=== PATIENT | male | born 1940 | race Caucasian/White ===

== ENCOUNTER 2018-12-20 23:05 | Inpatient (IN) | payer OTHER ==
[~2018-12-20] VITALS: Ht 177.8 cm; Wt 72.6 kg
[~2018-12-20 23:05] MED LIST: BENADRYL25 MG PO; HYDROCHLOROTHIA25 M1 PO; HYDROGEN PEROXIDE; LANTUS100 UNIT/M SUBQ; LISINOPRIL-HCT1 EACH PO; METFORMIN HCL500 MG PO; MULTI VITAMIN; PREDNISONE 20 M20 M1 PO; UNKNOWN HTN MED; ZANTAC 7575 MG PO; [UNRECOGNIZED DRUG - OTHER]; [UNRECOGNIZED DRUG - OTHER]; [UNRECOGNIZED DRUG - OTHER]
[2018-12-20 23:10] VITALS: BP 158/68
[2018-12-20 23:29] LABS: BE -3.4 mmol/L (-2 to +3)
[2018-12-20 23:38] LABS: PCO2 57.1 mmHg (35.0-45.0); pH 7.258 (7.340-7.450)
[2018-12-20 23:39] LABS: PO2 37.7 mmHg (75.0-100.0)
[2018-12-20 23:44] LABS: POC ANION GAP 19 mmol/L (10-20); POC BUN 20 mg/dL (8-26); POC CA IONIZED 4.6 mg/dL (4.5-5.3); POC CHLORIDE 86 mmol/L (98-109); POC CREATININE 1.2 mg/dL (0.6-1.3); POC GLUCOSE > 700 mg/dL (70-105); POC HEMOGLOBIN 17.7 g/dL (12.0-17.0); POC POTASSIUM 4.2 mmol/L (3.5-4.9); POC SODIUM 128 mmol/L (138-146); POC TCO2 27 mmol/L (24-29)
[2018-12-20 23:46] LABS: URINE BILIRUBIN NEGATIVE (Negative); URINE BLOOD 3+ (Negative); URINE CLARITY CLEAR; URINE COLOR STRAW; URINE GLUCOSE-RANDOM 3+ (Negative); URINE KETONES NEGATIVE (Negative); URINE LEUKOCYTES-REFLEX NEGATIVE (Negative); URINE NITRITE-REFLEX NEGATIVE (Negative); URINE PROTEIN NEGATIVE (Negative); URINE SPECIFIC GRAVITY <= 1.005 (1.005-1.030); URINE UROBILINOGEN 0.2 E.U./dl (0.2-1.0)
[2018-12-20 23:52] LABS: ABSOLUTE EOSINOPHILS 0.2 thou/uL (0.0-0.7); ABSOLUTE LYMPHOCYTES 2.6 thou/uL (0.8-5.3); ABSOLUTE NEUTROPHILS 5.4 thou/uL (1.6-8.1); BASOPHILS 0.4 %; EOSINOPHILS 2.6 %; HEMATOCRIT 49.5 % (42.0-52.0); HEMOGLOBIN 16.3 gm/dL (14.0-18.0); MCH 29.8 pg (26.0-34.0); MCV 90.4 fL (80.0-100.0); MONOCYTES 10.4 %; MPV 8.5 fl. (7.2-11.1); NUCLEATED RBCS 0 /100WBC; PLATELET COUNT* 333 thou/uL (150-400); POLYS 58.6 %; RBC 5.47 mil/uL (4.50-6.00); RDW-CV 13.5 % (10.5-14.5); WBC 9.2 thou/uL (4.0-11.0)
[2018-12-20 23:54] LABS: AMP/METHAMP Negative (Negative); BARBITURATES Negative (Negative); BENZODIAZEPINES Negative (Negative); COCAINE Negative (Negative); METHADONE Negative (Negative); OPIATES Negative (Negative); PCP Negative (Negative); THC Negative (Negative)
[2018-12-21] VITALS (36 sets, daily range): BP systolic 84–185; BP diastolic 36–75
[2018-12-21 00:03] LABS: INR 0.9; PROTIME 9.5 Seconds (9.20-11.50)
[2018-12-21 00:10] LABS: ANION GAP 7 mmol/L (7-16); BUN 19 mg/dL (7-18); CALCIUM 9.2 mg/dL (8.5-10.1); CHLORIDE 89 mmol/L (98-107); CO2 30 mmol/L (21-32); CREATININE 1.8 mg/dL (0.6-1.3); POTASSIUM 4.7 mmol/L (3.5-5.1); SODIUM 126 mmol/L (136-145); TROPONIN-I LEVEL <0.06 ng/mL (<0.06)
[2018-12-21 00:11] LABS: ALBUMIN 3.3 g/dL (3.4-5.0); ALKALINE PHOSPHATASE 99 U/L (46-116); LIPASE 430 U/L (73-393); NT-PRO BRAIN NAT PEPTIDE 178 pg/mL (<300); SGOT 25 U/L (15-37); SGPT 18 U/L (30-65); TOTAL BILIRUBIN 0.3 mg/dL (<0.1-1.0); TOTAL PROTEIN 7.4 g/dL (6.4-8.2)
[2018-12-21 00:19] LABS: CALCIUM 9.2 mg/dL (8.5-10.1); CREATININE 1.8 mg/dL (0.6-1.3); POTASSIUM 4.7 mmol/L (3.5-5.1)
[2018-12-21 00:21] LABS: GLUCOSE 822 mg/dL (70-99)
[2018-12-21 00:27] LABS: CASTS None Seen /LPF (None Seen); SQUAMOUS 0-3 Few /LPF (0-3)
[2018-12-21 00:28] LABS: URINE RBC 3-10 Few /HPF (0-2); URINE WBC-REFLEX 0-5 Rare /HPF (0-5)
[2018-12-21 00:29] LABS: BACTERIA-REFLEX 1-9 Few /HPF (None Seen); CRYSTALS None Seen /LPF (None Seen); TRANSITIONAL EPITHEL CELL 4-10 Moderate /LPF (None Seen)
[2018-12-21 00:48] LABS: BE -0.1 mmol/L (-2 to +3)
[2018-12-21 00:50] LABS: PCO2 69.6 mmHg (35.0-45.0); pH 7.243 (7.340-7.450)
[2018-12-21 00:51] LABS: PO2 211.9 mmHg (75.0-100.0)
[2018-12-21 05:52] LABS: BE 1.7 mmol/L (-2 to +3); PCO2 49.5 mmHg (35.0-45.0); pH 7.368 (7.340-7.450)
[2018-12-21 08:25] LABS: CALCIUM 8.3 mg/dL (8.5-10.1); CREATININE 0.9 mg/dL (0.6-1.3); MAGNESIUM 1.7 mg/dL (1.8-2.4); PHOSPHORUS* 2.9 mg/dL (2.5-4.9); TROPONIN-I LEVEL 0.19 ng/mL (<0.06)
[2018-12-21 08:27] LABS: POTASSIUM 3.5 mmol/L (3.5-5.1)
[2018-12-21 10:46] LABS: CHOLESTEROL 118 mg/dL (<200); HDL CHOLESTEROL 31 mg/dL (>40); LDL CHOLESTEROL 68 mg/dL (<100); TC:HDL 3.8 Ratio (Not establshd); TRIGLYCERIDE 97 mg/dL (<150); VLDL 19 mg/dL (<40)
[2018-12-21 10:47] LABS: SERUM ASSESSMENT Clear
[2018-12-21 12:26] LABS: MAGNESIUM 2.2 mg/dL (1.8-2.4); POTASSIUM 4.1 mmol/L (3.5-5.1)
[2018-12-21 15:38] LABS: BE -0.2 mmol/L (-2 to +3); PCO2 44.6 mmHg (35.0-45.0); pH 7.372 (7.340-7.450)
[2018-12-21 15:41] LABS: PO2 55.8 mmHg (75.0-100.0)
[2018-12-22] VITALS (90 sets, daily range): BP systolic 71–189; BP diastolic 38–83
[2018-12-22 02:05] LABS: GLYCOHEMOGLOBIN (HGB A1C) 15.6 % (4.8-5.6)
[2018-12-22 04:39] LABS: HEMATOCRIT 39.5 % (42.0-52.0); MCH 28.9 pg (26.0-34.0); MCHC 33.1 g/dL (28.0-37.0); MCV 87.5 fL (80.0-100.0); MPV 8.2 fl. (7.2-11.1); RBC 4.52 mil/uL (4.50-6.00); RDW-CV 13.6 % (10.5-14.5); WBC 12.4 thou/uL (4.0-11.0)
[2018-12-22 04:53] LABS: HEMOGLOBIN 13.1 gm/dL (14.0-18.0)
[2018-12-22 04:55] LABS: ALBUMIN 2.3 g/dL (3.4-5.0); CALCIUM 8.1 mg/dL (8.5-10.1); CREATININE 1.1 mg/dL (0.6-1.3); MAGNESIUM 1.8 mg/dL (1.8-2.4); POTASSIUM 3.9 mmol/L (3.5-5.1); TOTAL BILIRUBIN 0.7 mg/dL (<0.1-1.0); TOTAL PROTEIN 5.4 g/dL (6.4-8.2)
[2018-12-22 06:23] LABS: BE -0.1 mmol/L (-2 to +3); PCO2 46.6 mmHg (35.0-45.0); PO2 95.7 mmHg (75.0-100.0); pH 7.361 (7.340-7.450)
--- NOTE | 2018-12-22 11:07 | EKG ---
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1940 Requested By: Amelia Villanueva Order Number: [id number] MD: Hemant Valencia Measurements Intervals [place] Rate: 101 P: 43 HI: 200 QRS: 59 QRSD: 89 T: 258 QT: 297 QTc: 385 Interpretive Statements Sinus tachycardia Ventricular bigeminy Repol abnrm suggests ischemia, diffuse leads Compared to ECG 11/25/2015 13:00:35 Ventricular premature complex(es) now present Possible ischemia now present Electronically Signed On 12-22-2018 11:06:54 CDT by Hemant Valencia [email or web address] <ELECTRONICALLY SIGNED> By: Hemant Valencia MD, FAC 12/22/18 1106 2319 2319 Hemant Valencia MD, [facility] /EPI
--- NOTE | 2018-12-22 11:09 | EKG ---
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1940 Requested By: Ravi Velazco Order Number: [id number] Reading MD: Hemant Valenica Measurements Intervals [place] Rate: 70 P: 73 SD: 195 QRS: 66 QRSD: 81 T: 238 QT: 357 QTc: 386 Interpretive Statements Sinus rhythm Abnormal T, consider ischemia, diffuse leads Compared to ECG 11/25/2015 13:00:35 Possible ischemia now present T-wave abnormality still present Electronically Signed On 12-22-2018 11:09:15 CDT by Hemant Valencia [email or web address] <ELECTRONICALLY SIGNED> By: Hemant Valencia MD, [facility] 12/22/18 2446 0748 0748 Hemant Valencia MD, [facility] /EPI
--- NOTE | 2018-12-22 11:20 | EKG ---
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[facility] : 1940 Requested By: Ravi Velazco Order Number: [id number] Jessica MD: Hemant Valencia Measurements Intervals [place] Rate: 54 P: 49 MN: 205 QRS: 59 QRSD: 83 T: 207 QT: 505 QTc: 479 Interpretive Statements Sinus rhythm Abnrm T, consider ischemia, anterolateral leads Compared to ECG 11/25/2015 13:00:35 Possible ischemia persists Electronically Signed On 12-22-2018 11:17:44 CDT by Hemant Valencia [email or web address] <ELECTRONICALLY SIGNED> By: Hemant Valencia MD, [facility] 12/22/18 1117 0756 0756 Hemant Valencia MD, FACC /EPI
--- NOTE | 2018-12-22 13:09 | 2DMMODE ---
[place] [address] 2 D/M-MODE ECHOCARDIOGRAM Name: EVE,EDJOSSY Patel Room: [address] ADM IN [facility]#: [id number] Admission: 12/21/18 Attend Phys: Ren Daly MD Discharge: Date of : 38 Date of Service: 12/22/18 1308 Report #: [id number] THIS REPORT FOR: //name// APPROVED REPORT Study performed: 12/22/2018 09:57:06 EXAM: Comprehensive 2D, Doppler, and color-flow Echocardiogram Patient Location: In-Patient Room #: [facility] Status: routine BSA: 1.98 HR: 65 bpm BP: 172/80 mmHg Rhythm: NSR Other Information Study Quality: Good Indications DKA, Hypoxic 2D Dimensions IVSd: 11.00 (7-11mm) LVOT Diam: 20.41 (18-24mm) LVDd: 48.11 mm PWd: 10.22 (7-11mm) Ascending Ao: 32.34 (22-36mm) LVDs: 31.29 (25-40mm) Aortic Root: 30.91 mm Volumes Left Atrial Volume (Systole) LA ESV Index: 20.30 mL/m2 Aortic Valve AoV Peak Dillon.: 0.99 m/s AO Peak Gr.: 3.92 mmHg LVOT Max P.40 mmHg AO Mean Gr.: 2.14 mmHg LVOT Mean P.39 mmHg LVOT Max V: 0.92 m/s AO V2 VTI: 18.15 cm LVOT Mean V: 0.53 m/s DELMIS (VTI): 3.06 cm2 LVOT V1 VTI: 16.96 cm Mitral Valve E/A Ratio: 1.02 MV Decel. Time: 252.78 ms MV E Max Dillon.: 0.96 m/[place] [address] 2 D/M-MODE ECHOCARDIOGRAM Name: EVESHENA NEWMAN Amanda Room: [address] IN .R.#: [id number] Admission: 12/21/18 Attend Phys: Ren Daly MD Discharge: Date of : 38 Date of Service: 12/22/18 1308 Report #: [id number] MV PHT: 73.31 ms MVA (PHT): 3.00 cm2 TDI E/Lateral E': 8.00 E/Medial E': 8.73 Medial E' Dillon.: 0.11 m/s Lateral E' Dillon.: 0.12 m/s Pulmonary Valve PV Peak Dillon.: 0.86 m/s PV Peak Gr.: 2.93 mmHg Left Ventricle The left ventricle is normal size. There is normal LV segmental wall motion. There is normal left ventricular wall thickness. Left ventricular systolic function is normal. The left ventricular ejection fraction is within the normal range. LVEF is 55-60%. The left ventricular diastolic function is normal. Right Ventricle The right ventricle is normal size. The right ventricular systolic function is normal. Atria The left atrium size is normal. The right atrium size is normal. Aortic Valve Mild aortic valve sclerosis. No aortic regurgitation is present. There is no aortic valvular stenosis. Mitral Valve The mitral valve is normal in structure. There is no mitral valve regurgitation noted. No evidence of mitral valve stenosis. Tricuspid Valve The tricuspid valve is normal in structure. There is no tricuspid valve regurgitation noted. Pulmonic Valve The pulmonary valve is normal in structure. There is no pulmonic valvular regurgitation. Great Vessels The aortic root is normal in size. IVC is normal in size and collapses >50% [place] [address] 2 D/M-MODE ECHOCARDIOGRAM Name: SHENA PRADO Room: [address] IN [facility]#: [id number] Admission: 12/21/18 Attend Phys: Ren Daly MD Discharge: Date of : 38 Date of Service: 12/22/18 1308 Report #: [id number] Pericardium There is no pericardial effusion. <Conclusion> The left ventricle is normal size. There is normal left ventricular wall thickness. Left ventricular systolic function is normal. The left ventricular ejection fraction is within the normal range. LVEF is 55-60%. The left ventricular diastolic function is normal. The right ventricle is normal size. The left atrium size is normal. Mild aortic valve sclerosis. No aortic regurgitation is present. There is no aortic valvular stenosis. The mitral valve is normal in structure. The tricuspid valve is normal in structure. IVC is normal in size and collapses >50% with inspiration. There is no pericardial effusion. There is normal LV segmental wall motion. <ELECTRONICALLY SIGNED> By: Hemant Valencia MD, FACC 12/22/18 1308 1308 1308 Hemant Valencia MD, FACC /INF
--- NOTE | 2018-12-22 16:27 | CON ---
[address] [address] CONSULTATION Name: EVESHARRIJOSSY Patel Room: [address] IN M.R.#: [id number] Admission: 12/21/18 Attend Phys: Ren Daly MD Discharge: Date of : 38 Report #: [id number] THIS REPORT FOR: //name// CC: GABE physician/PCP Ren Daly CARDIOLOGY CONSULTATION HISTORY OF PRESENT ILLNESS: I was asked by Dr. Daly to see this 78-year-old white male in Cardiology consultation for evaluation and treatment of chest pain. Additionally, this man does have an abnormal EKG and a minimally elevated troponin at 0.07. This man is intubated, sedated and on the ventilator and unable to give a history. According to the ER notes, he was found by his son on the floor after having fallen; he had had some falls for a couple of weeks apparently. He, apparently, passed out and hit his head. There is an abrasion noted on his forehead. This man does have insulin-dependent diabetes mellitus and hypertension. He was confused and combative and agitated and was subsequently brought to the hospital. I am not sure whether he was intubated in the field or at the hospital. Apparently, he had some hypoxemia; at least there is one report of that, although I do not find a data to support it. He has a history of a carotid stenosis. He has had an endarterectomy, I believe, on the right and is said to have had an 80% lesion on the left a couple of years ago, about which he has refused to do anything. He is a 8-jseh-n-day smoker and does not wish to quit smoking, according from a previous note from [address] Morales's in the office. He is noncompliant. He is found to have hyperosmotic hyperglycemia. His blood sugar was 800. He is felt to have a metabolic encephalopathy. He is felt to be possibly septic. He does have renal hematoma on a CT. I have been unable to find that result, but I was told that he has it and one investigative reporter had said that he had bilateral renal hematomas. He does have red blood cells in his urine, but not significant white cells. He does have insulin-dependent diabetes. He said to not take his medications regularly. PAST MEDICAL HISTORY: As described above. He does have interstitial infiltrates that at least one of the physicians reported were chronic; however, pneumonia has not been excluded here. ALLERGIES: HE IS ALLERGIC TO [place] INHIBITORS AND HE GETS ANGIOEDEMA WITH IT. HOME MEDICATIONS: Include Benadryl p.r.n., hydrochlorothiazide 25 mg daily, Lantus insulin in an unknown dose and metformin 1000 mg b.i.d. He cannot give a history and there is no family here for history either. SOCIAL HISTORY: Likewise unobtainable, though he was noted in the past to smoke 2 packs a day and refuses to quit smoking. FAMILY HISTORY: [place] [address] CONSULTATION Name: SHENA PRADO Room: [address] IN [facility]#: [id number] Admission: 12/21/18 Attend Phys: Ren Daly MD Discharge: Date of : 39 Report #: [id number] PHYSICAL EXAMINATION: GENERAL: He presents as well-developed, well-nourished white male, in no acute distress. He is unresponsive and on the ventilator. VITAL SIGNS: His pulse was 63 and regular, blood pressure was 146/70, respirations were 16 and regular and he was afebrile. Most recent temperature was 95.9 axillary. HEENT: His head was atraumatic. Eyes clear. NECK: Supple. There was no jugular venous distention or hepatojugular reflux. Thyroid was not enlarged. There was no adenopathy. SKIN: Warm and dry. Mucous members were moist. LUNGS: Clear to auscultation and percussion, although his breath sounds were decreased bilaterally. HEART: Examination of the heart revealed distant first and second heart sounds. There were no murmurs, rubs, thrills, heaves or gallops. PMI was not displaced. Rhythm was regular, rate was approximately 63. ABDOMEN: Soft, flat and nontender. There were no palpable masses. No organomegaly. EXTREMITIES: Examination of the extremities revealed no cyanosis, clubbing or edema. NEUROLOGIC: The patient did not mentate normally, talk normally and he did not move all extremities. He was intubated and sedated. I believe he is on fentanyl now. Note that this man was reported by EMS to say that he had chest pain after he had fallen. He cannot report chest pain now; it just does not seem to be tender. He did not respond to pressure on his chest. LABORATORY DATA: His initial EKG showed normal sinus rhythm with frequent VPCs and some bigeminy. There were nonspecific T-wave abnormalities that were somewhat diffuse. The overall heart rate was 101, so technically, it is sinus tachycardia. Subsequent EKG today showed normal sinus rhythm, heart rate was 70 and there were T-wave abnormalities that were diffuse, involving the inferior and anterolateral leads. Ischemia cannot be excluded. His initial troponin was normal and less than 0.06. A subsequent troponin was minimally elevated at 0.07; another one is pending. His NT-proBNP was 178. Creatinine was 1.8, sodium was 126, potassium is 4.7, chloride was 89 and bicarbonate was 30. He had multiple CTs and x-rays. Positive findings are as described above. IMPRESSION: 1. Chest pain that is probably not cardiac, but could have been ischemic. 2. Abnormal EKG, consistent with, but not diagnostic of ischemia. 3. Minimal elevation of troponin that is fairly nonspecific in this context. 4. Carotid stenosis. 5. Insulin-dependent diabetes mellitus. 6. Essential hypertension. 7. [place] [address] CONSULTATION Name: SHENA PRADO Room: [address] IN ..#: [id number] Admission: 12/21/18 Attend Phys: Ren Daly MD Discharge: Date of : 39 Report #: [id number] 8. Smoking. 9. Hyperosmotic hyperglycemic coma. 10. Metabolic encephalopathy. 11. Possible sepsis. 12. Renal hematoma. RECOMMENDATIONS: I will get further troponins and further EKGs, but I do not think cardiac intervention is necessary at this point. We can get an echo and carotid Dopplers. Ultimately, he probably needs a stress test or cardiac cath, but not today or in the near future; his metabolic problems need to be corrected first. Thank you very much for asking me to see the patient. If there are any questions, please feel free to contact me. <ELECTRONICALLY SIGNED> By: Rosendo Morales MD, FACC 12/22/18 1627 0916 [id number]. Horace Velazco MD, FAC /nt
[2018-12-23] VITALS (22 sets, daily range): BP systolic 93–196; BP diastolic 39–96
[2018-12-23 04:43] LABS: HEMOGLOBIN 13.4 gm/dL (14.0-18.0); MCH 29.4 pg (26.0-34.0); MCHC 33.4 g/dL (28.0-37.0); MCV 88.1 fL (80.0-100.0); RBC 4.54 mil/uL (4.50-6.00); RDW-CV 13.8 % (10.5-14.5); WBC 8.8 thou/uL (4.0-11.0)
[2018-12-23 05:08] LABS: ALBUMIN 2.2 g/dL (3.4-5.0); CALCIUM 8.2 mg/dL (8.5-10.1); CREATININE 1.1 mg/dL (0.6-1.3); MAGNESIUM 1.7 mg/dL (1.8-2.4); POTASSIUM 4.2 mmol/L (3.5-5.1); TOTAL BILIRUBIN 0.3 mg/dL (<0.1-1.0); TOTAL PROTEIN 5.5 g/dL (6.4-8.2)
[2018-12-23 11:23] LABS: BE -0.8 mmol/L (-2 to +3); pH 7.348 (7.340-7.450)
[2018-12-23 11:25] LABS: PO2 150.2 mmHg (75.0-100.0)
--- NOTE | 2018-12-23 16:31 | CON ---
[address] [address] CONSULTATION Name: SHENA PRADO Room: [address] IN M.R.#: [id number] Admission: 12/21/18 Attend Phys: Ren Daly MD Discharge: Date of : 38 Report #: [id number] THIS REPORT FOR: //name// CC: Eden Daly DATE OF SERVICE: 12/22/2018 REASON FOR EVALUATION: Acute respiratory failure requiring ventilator. HISTORY OF PRESENT ILLNESS: The patient is a 78-year-old gentleman with history of diabetes, on insulin, who presented with agitation, confused, altered mental status. Apparently, the patient was not able to protect his airway. He was confused, lethargic and started to have hypoxemia, was intubated for airway protection and we were consulted for further care. He was admitted, was found to have severe hyperglycemia associated lactic acidosis. Has altered mental status and was intubated, was treated with insulin and IV fluids and empiric antibiotics with hypotension and lactic acidosis. His Levophed at this time at 1. His troponin was slightly elevated, suspect demand ischemia with hypotension and hypoxemia. Currently, the patient is intubated. He is grimacing, withdrawing to pain. He is on sedation, however. PAST MEDICAL HISTORY: Angioedema, hyperlipidemia. ALLERGIES: B[place] INHIBITORS. SOCIAL HISTORY: Not able to obtain; however, from the records, has history of smoking 2 packs per day and continues to smoke. FAMILY HISTORY: Not obtainable. HOME MEDICATIONS: Reviewed include hydrochlorothiazide, Lantus insulin. REVIEW OF SYSTEMS: Unobtainable. Otherwise, as above. PHYSICAL EXAMINATION: GENERAL: The patient is sedated on propofol. VITAL SIGNS: His pulse is 57. He is afebrile. Maximum temperature was 37.1; however, when he first came in, temperature was 35.5. Blood pressure 125/57. He is on Levophed at 1 and oxygen saturation is 100%. NECK: Supple. EYES: Anicteric. CHEST: Equal symmetric breath sounds and normal. [place] [address] CONSULTATION Name: SHENA PRADO Amanda Room: [address] IN [facility].#: [id number] Admission: 12/21/18 Attend Phys: Ren Daly MD Discharge: Date of : 38 Report #: [id number] CARDIOVASCULAR: Regular rhythm. ABDOMEN: Soft, nontender, obese. EXTREMITIES: Trace edema. NEUROLOGIC AND PSYCHIATRY: Not able to evaluate; however, was agitated earlier. He is on propofol. LABORATORY AND OTHER DATA: White blood cell count 12.4, initially 9.2, hemoglobin 13.1, platelets were 260. Chemistry: His sodium 128, potassium normal. Carbon dioxide 28. Anion gap is normal at 8. His hemoglobin A1c is severely increased 15.6. Troponin 0.13. Albumin 2.3, lipase 430. Natriuretic peptide proBNP was normal at 178. Blood gas, pH 7.3; pCO2 46, borderline elevated; pO2 95. This was on 35%, tidal volume 600, and PEEP of 5. Chest x-ray, which was done today, which I have reviewed as well shows right lower lobe infiltrate, effusion versus atelectasis versus developing pneumonia, has mild pulmonary vascular congestion, revascularization. Otherwise clear. Suspect aspiration. ASSESSMENT AND PLAN: 1. Acute respiratory failure related to altered mental status. His altered mental status is likely related to hyperglycemia, noncompliance, dehydration. Cannot exclude sepsis. Agree with antibiotic treatment. Agree with IV fluid hydration. Has minimal pulmonary vascular congestion. Currently on antibiotics with vancomycin and Zosyn. 2. Hypotension. Differential diagnoses include dehydration, most likely hypovolemia with severe hyperglycemia, nonketotic coma. Agree with IV hydration. At this time, he has hyponatremia. We will bolus half liter with LR. Differential diagnosis includes sepsis, cardiogenic is less likely. Currently on antibiotics as above. 3. Acute respiratory failure. We will do spontaneous breathing trial, chest x-ray in the morning. Evaluate for weaning if mental status adequate. 4. Mildly elevated troponin, per Cardiology. Suspect demand ischemia. Critical care time taking care of the patient was 31 minutes. <ELECTRONICALLY SIGNED> By: Asher Chiang MD 12/23/18 1631 1308 [id number] Chiang MD /nt
[2018-12-24] VITALS (12 sets, daily range): BP systolic 117–227; BP diastolic 63–120
[2018-12-24 04:51] LABS: HEMATOCRIT 43.8 % (42.0-52.0); HEMOGLOBIN 14.6 gm/dL (14.0-18.0); MCH 29.2 pg (26.0-34.0); MCHC 33.2 g/dL (28.0-37.0); MCV 87.7 fL (80.0-100.0); MPV 8.5 fl. (7.2-11.1); RBC 4.99 mil/uL (4.50-6.00); RDW-CV 13.6 % (10.5-14.5); WBC 11.5 thou/uL (4.0-11.0)
[2018-12-24 05:05] LABS: ALBUMIN 2.7 g/dL (3.4-5.0); MAGNESIUM 1.7 mg/dL (1.8-2.4); POTASSIUM 3.9 mmol/L (3.5-5.1); TOTAL BILIRUBIN 0.7 mg/dL (<0.1-1.0); TOTAL PROTEIN 6.6 g/dL (6.4-8.2)
[2018-12-24 06:40] LABS: BE 4.9 mmol/L (-2 to +3); PCO2 34.3 mmHg (35.0-45.0)
--- NOTE | 2018-12-24 16:06 | EKG ---
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[facility] : 1940 Requested By: Gisella Loving Order Number: [id number] Jessica MD: Hemant Valencia Measurements Intervals [place] Rate: 92 P: 36 CT: 181 QRS: 56 QRSD: 86 T: -5 QT: 296 QTc: 367 Interpretive Statements Sinus rhythm with rare pvc's Borderline repolarization abnormality Compared to ECG 12/22/2018 07:56:00 Possible ischemia no longer present Electronically Signed On 12-24-2018 16:06:33 CDT by Hemant Valencia [email or web address] <ELECTRONICALLY SIGNED> By: Hemant Valencia MD, [facility] 12/24/18 1606 1520 1520 Hemant Valencia MD, [facility] /EPI
[2018-12-25 05:02] LABS: HEMATOCRIT 44.2 % (42.0-52.0); HEMOGLOBIN 14.9 gm/dL (14.0-18.0); MCH 29.5 pg (26.0-34.0); MCHC 33.7 g/dL (28.0-37.0); MCV 87.5 fL (80.0-100.0); MPV 8.2 fl. (7.2-11.1); RBC 5.05 mil/uL (4.50-6.00); RDW-CV 13.4 % (10.5-14.5); WBC 9.4 thou/uL (4.0-11.0)
[2018-12-25 05:09] LABS: CALCIUM 9.2 mg/dL (8.5-10.1); CREATININE 0.9 mg/dL (0.6-1.3); POTASSIUM 4.3 mmol/L (3.5-5.1)
[2018-12-25 08:30] VITALS: BP 135/80
[2018-12-25 12:19] VITALS: BP 170/75
[2018-12-25 16:39] VITALS: BP 165/78
[2018-12-26] VITALS: BP 150/74
[2018-12-26 06:01] VITALS: BP 153/52
[2018-12-26 08:00] VITALS: BP 126/61
[2018-12-26 11:42] LABS: ABSOLUTE BASOPHILS 0.1 thou/uL (0.0-0.2); ABSOLUTE EOSINOPHILS 0.8 thou/uL (0.0-0.7); ABSOLUTE LYMPHOCYTES 2.3 thou/uL (0.8-5.3); ABSOLUTE MONOCYTES 1.1 thou/uL (0.0-1.2); ABSOLUTE NEUTROPHILS 5.5 thou/uL (1.6-8.1); BASOPHILS 0.6 %; EOSINOPHILS 7.8 %; HEMATOCRIT 46.7 % (42.0-52.0); HEMOGLOBIN 15.7 gm/dL (14.0-18.0); LYMPHOCYTES 23.8 %; MCH 29.6 pg (26.0-34.0); MCHC 33.6 g/dL (28.0-37.0); MCV 88.1 fL (80.0-100.0); MONOCYTES 11.6 %; MPV 7.9 fl. (7.2-11.1); NUCLEATED RBCS 0 /100WBC; POLYS 56.2 %; RDW-CV 13.6 % (10.5-14.5); WBC 9.8 thou/uL (4.0-11.0)
[2018-12-26 11:53] LABS: PLATELET COUNT* 369 thou/uL (150-400)
[2018-12-26 12:06] LABS: ALBUMIN 2.7 g/dL (3.4-5.0); CALCIUM 9.6 mg/dL (8.5-10.1); CREATININE 1.2 mg/dL (0.6-1.3); POTASSIUM 4.3 mmol/L (3.5-5.1); TOTAL BILIRUBIN 0.6 mg/dL (<0.1-1.0); TOTAL PROTEIN 7.2 g/dL (6.4-8.2)
[2018-12-26 12:36] VITALS: BP 128/58
[2018-12-26 23:05] LABS: URINE BILIRUBIN NEGATIVE (Negative); URINE BLOOD 3+ (Negative); URINE CLARITY CLEAR; URINE COLOR YELLOW; URINE GLUCOSE-RANDOM 2+ (Negative); URINE KETONES TRACE (Negative); URINE LEUKOCYTES-REFLEX TRACE (Negative); URINE NITRITE-REFLEX NEGATIVE (Negative); URINE PROTEIN 1+ (Negative); URINE SPECIFIC GRAVITY 1.015 (1.005-1.030)
[2018-12-26 23:18] LABS: CASTS None Seen /LPF (None Seen); CRYSTALS None Seen /LPF (None Seen); MUCUS 0-3 Light strn/LPF (None Seen); SQUAMOUS 0-3 Few /LPF (0-3); URINE RBC >20 Many /HPF (0-2); URINE WBC-REFLEX 0-5 Rare /HPF (0-5)
[2018-12-27 08:00] VITALS: BP 124/43
[2018-12-27 08:38] LABS: HEMATOCRIT 41.1 % (42.0-52.0); MCH 28.8 pg (26.0-34.0); MCHC 33.1 g/dL (28.0-37.0); MCV 87.2 fL (80.0-100.0); MPV 7.8 fl. (7.2-11.1); RBC 4.71 mil/uL (4.50-6.00); RDW-CV 13.3 % (10.5-14.5)
[2018-12-27 08:42] LABS: HEMOGLOBIN 13.6 gm/dL (14.0-18.0)
[2018-12-27 08:50] LABS: ALBUMIN 2.4 g/dL (3.4-5.0); CALCIUM 8.6 mg/dL (8.5-10.1); CREATININE 1.2 mg/dL (0.6-1.3); MAGNESIUM 1.7 mg/dL (1.8-2.4); POTASSIUM 4.3 mmol/L (3.5-5.1); TOTAL BILIRUBIN 0.4 mg/dL (<0.1-1.0)
[2018-12-27 12:06] VITALS: BP 122/64
[2018-12-27 15:57] VITALS: BP 140/69
[2018-12-27 21:30] VITALS: BP 146/66
[2018-12-28 00:12] VITALS: BP 126/53
[2018-12-28 04:00] VITALS: BP 146/64
[2018-12-28 08:00] VITALS: BP 126/43
[2018-12-28 11:59] VITALS: BP 147/63
[2018-12-28 15:27] VITALS: BP 156/72
[2018-12-28 20:00] VITALS: BP 121/67
[2018-12-29] VITALS: BP 162/68
[2018-12-29 03:51] VITALS: BP 162/76
[2018-12-29 04:55] LABS: ALBUMIN 3.1 g/dL (3.4-5.0); CALCIUM 9.7 mg/dL (8.5-10.1); CREATININE 1.2 mg/dL (0.6-1.3); MAGNESIUM 1.8 mg/dL (1.8-2.4); PHOSPHORUS* 3.6 mg/dL (2.5-4.9); POTASSIUM 5.3 mmol/L (3.5-5.1); TOTAL BILIRUBIN 0.3 mg/dL (<0.1-1.0); TOTAL PROTEIN 6.8 g/dL (6.4-8.2)
[2018-12-29 08:00] VITALS: BP 153/68
[2018-12-29] MEDS ORDERED: ASPIR-TRIN325 MG PO (11:31)
[2018-12-29] MEDS ORDERED: DOXYCYCLINE 10100 MG PO (11:32)
[2018-12-29] MEDS ORDERED: REMERON15 MG PO (11:33)
[2018-12-29] MEDS ORDERED: HUMALOG100 UNIT/1 SUBQ (12:02)
[2018-12-29 12:13] VITALS: BP 153/68
--- NOTE | 2018-12-31 14:23 | CON ---
[address] [address] CONSULTATION Name: EVESHENA Room: [address] IN M.R.#: [id number] Admission: 12/21/18 Attend Phys: Ren Daly MD Discharge: 12/29/18 Date of : 38 Report #: [id number] THIS REPORT FOR: //name// CC: Eden Duglas Daly DATE OF SERVICE: 12/23/2018 HISTORY OF PRESENT ILLNESS: This is a 78-year-old male patient on whom some weakness was noticed on the left side. I talked to the nurses looking after this patient. Subsequently, this patient does not have any further weakness. In fact, he is agitated and they are trying to keep him in the bed somehow. REVIEW OF SYSTEMS: From the records as he does not provide any history. In fact, he will not talk to me. Reviewing the notes, it looks like this patient was thrashing around when he came in. They did a head CT as well as the cervical spine. On evaluation, he was found to have carotid stenosis. He has already been seen by vascular surgeon for that. He was having chest pain and elevated troponin. He has a prior history of endarterectomy as I understand from the record. He has a history of smoking, he has a history of noncompliance. REVIEW OF SYSTEMS: A 14-point review of system was carried out from the record and this is his positive 14-point review of system. PAST MEDICAL HISTORY: Positive for endarterectomy. FAMILY HISTORY: Unavailable. SOCIAL HISTORY: He apparently smokes. PHYSICAL EXAMINATION: He did not cooperate at all with examination. It looks like he moved both sides. He is agitated. He will not talk. I tried to do the cranial nerve examination. He did not cooperate and he just is very uncooperative. Cardiac examination is stable. His blood pressure is 98/43, his pulse is 55. LABORATORY DATA: Indicate a white count of 8.8. His last sodium was normal. He did have a CT scan on admission, which was unremarkable. IMPRESSION AND PLAN: This patient appeared to be very agitated and very encephalopathic at the moment. No testing can be done in this patient. He needs to stabilize from that perspective. I understand from the nurses, even in the baseline he is pretty aggressive, so I suspect agitation is going to be problem. I do not believe he had a stroke, and even if he did nothing can be done at this state. Once he is stabilized, we [place] [address] CONSULTATION Name: SHENA PRADO Room: [address]#: [id number] Admission: 12/21/18 Attend Phys: Ren Daly MD Discharge: 12/29/18 Date of : 38 Report #: [id number] Thank you very much for this referral. <ELECTRONICALLY SIGNED> By: Manuel Pham MD 12/31/18 1423 1948 [id number] Pham MD /nt
--- NOTE | 2018-12-31 14:23 | EEG ---
[address] [address] EEG STUDY REPORT Name: SHENA PRADO Room: [address] IN M.R.#: [id number] Admission: 12/21/18 Attend Phys: Ren Daly MD Discharge: 12/29/18 Date of : 38 Report #: [id number] THIS REPORT FOR: //name// CC: Eden Daly DATE OF SERVICE: 12/24/2018 This patient is being evaluated for altered mental status. EEG was done by placing the electrodes by standard 10-20 system of electrode placement. Both referential and sequential montages were used for recording. Background activity in this patient's EEG is about 8-9 Hz. It is intermixed with slowing on both sides. It is mainly in theta range. The patient became drowsy and that is associated with bilateral slowing. Photic stimulation is unremarkable. No active epileptiform activity was noticed. IMPRESSION: This patient's EEG is intermixed with theta range slowing on both sides. That is a nonspecific abnormality, which can occur with encephalopathy, effect of psychotropic medication, dementia, etc. Clinical correlation is recommended. <ELECTRONICALLY SIGNED> By: Manuel Pham MD 12/31/18 1423 1812 gardenia Pham MD /nt
--- NOTE | 2018-12-31 14:23 | CON ---
[address] [address] CONSULTATION Name: SHENA PRADO Room: [address] IN .R.#: [id number] Admission: 12/21/18 Attend Phys: Ren Daly MD Discharge: 12/29/18 Date of : 38 Report #: [id number] THIS REPORT FOR: //name// CC: Eden Daly DATE OF SERVICE: 12/24/2018 HISTORY OF PRESENT ILLNESS: This is a 78-year-old male patient who was evaluated by me for carotid stenosis. The patient's records were reviewed. It looks like the patient has a known DICTATION ENDS HERE. <ELECTRONICALLY SIGNED> By: Manuel Pham MD 12/31/18 1423 0827 2036Manuel Pham MD /nt
== END 2018-12-29 12:35 | disposition home health service (06) | DRG 208 ==
LOC: M.ERS 23:05 → M.2W 12-21 02:21 → M.TBA-ER 12-21 02:21 → M.ICU 12-21 02:21 → M.2W 12-24 16:42
PROVIDERS: Emergency Medicine; Internal Medicine; Internal Medicine Pulmonary Disease; ADMIT Family Medicine
PROC: 5A1945Z Respiratory Ventilation, 24-96 Consecutive Hours (ICD-10-PCS; principal; 2018-12-21)
PROC: 0BH17EZ Insertion of Endotracheal Airway into Trachea, Via Natural or Artificial Opening (ICD-10-PCS; principal; 2018-12-21)
PROC: 05HY33Z Insertion of Infusion Device into Upper Vein, Percutaneous Approach (ICD-10-PCS; principal; 2018-12-21)
DX: J18.9 Pneumonia, unspecified organism (principal); E11.01 Type 2 diabetes mellitus with hyperosmolarity with coma; G92 Toxic encephalopathy; N17.0 Acute kidney failure with tubular necrosis; I21.4 Non-ST elevation (NSTEMI) myocardial infarction; J96.01 Acute respiratory failure with hypoxia; R57.1 Hypovolemic shock; E87.1 Hypo-osmolality and hyponatremia; E87.2 Acidosis; E11.65 Type 2 diabetes mellitus with hyperglycemia; F17.210 Nicotine dependence, cigarettes, uncomplicated; T38.3X5A Adverse effect of insulin and oral hypoglycemic [antidiabetic] drugs, initial encounter; E78.5 Hyperlipidemia, unspecified; I95.9 Hypotension, unspecified; I12.9 Hypertensive chronic kidney disease with stage 1 through stage 4 chronic kidney disease, or unspecified chronic kidney disease; E11.22 Type 2 diabetes mellitus with diabetic chronic kidney disease; E11.51 Type 2 diabetes mellitus with diabetic peripheral angiopathy without gangrene; N18.3 Chronic kidney disease, stage 3 (moderate); I65.22 Occlusion and stenosis of left carotid artery; K59.09 Other constipation; Z90.49 Acquired absence of other specified parts of digestive tract; Z79.84 Long term (current) use of oral hypoglycemic drugs; Z79.899 Other long term (current) drug therapy; Z88.8 Allergy status to other drugs, medicaments and biological substances; Z91.14 Patient's other noncompliance with medication regimen; Y92.89 Other specified places as the place of occurrence of the external cause

== ENCOUNTER 2019-01-29 18:42 | Emergency (ER) | payer OTHER ==
[~2019-01-29] VITALS: Ht 177.8 cm; Wt 80.7 kg
[~2019-01-29 18:42] MED LIST changes: +ASPIR-TRIN325 MG PO; +DOXYCYCLINE 10100 MG PO; +HUMALOG100 UNIT/1 SUBQ; +REMERON15 MG PO
[2019-01-29] MEDS ORDERED: KEFLEX500 M1 PO (19:34)
[2019-01-29] MEDS ORDERED: AUGMENTIN 500-1 EACH PO (19:36)
[2019-01-29 19:58] VITALS: BP 126/76
== END 2019-01-29 20:00 | disposition home or self-care (01) ==
LOC: M.ERS 18:42
DX: S60.511A Abrasion of right hand, initial encounter (principal); S05.01XA Injury of conjunctiva and corneal abrasion without foreign body, right eye, initial encounter; E78.00 Pure hypercholesterolemia, unspecified; I12.9 Hypertensive chronic kidney disease with stage 1 through stage 4 chronic kidney disease, or unspecified chronic kidney disease; E11.22 Type 2 diabetes mellitus with diabetic chronic kidney disease; N18.2 Chronic kidney disease, stage 2 (mild); F17.210 Nicotine dependence, cigarettes, uncomplicated; Z79.4 Long term (current) use of insulin; Z88.8 Allergy status to other drugs, medicaments and biological substances; W55.03XA Scratched by cat, initial encounter; Y93.89 Activity, other specified; Y92.89 Other specified places as the place of occurrence of the external cause; Y99.8 Other external cause status

== ENCOUNTER 2020-07-05 01:27 | Inpatient (IN) | payer OTHER ==
[~2020-07-05] VITALS: Ht 175.3 cm; Wt 88.4 kg
[~2020-07-05 01:27] MED LIST changes: +AUGMENTIN 500-1 EACH PO; +KEFLEX500 M1 PO
[2020-07-05 02:00] VITALS: BP 121/60
[2020-07-05 02:15] LABS: ABSOLUTE BASOPHILS 0.1 thou/uL (0.0-0.2); ABSOLUTE EOSINOPHILS 0.6 thou/uL (0.0-0.7); ABSOLUTE MONOCYTES 1.3 thou/uL (0.0-1.2); ABSOLUTE NEUTROPHILS 9.2 thou/uL (1.6-8.1); BASOPHILS 0.6 %; EOSINOPHILS 4.3 %; HEMATOCRIT 39.4 % (42.0-52.0); HEMOGLOBIN 13.4 gm/dL (14.0-18.0); LYMPHOCYTES 15.3 %; MCH 30.2 pg (26.0-34.0); MCV 88.9 fL (80.0-100.0); MONOCYTES 10.2 %; MPV 6.3 fl. (7.2-11.1); NUCLEATED RBCS 0 /100WBC; PLATELET COUNT* 388 thou/uL (150-400); POLYS 69.6 %; RBC 4.44 mil/uL (4.50-6.00); RDW-CV 13.6 % (10.5-14.5); WBC 13.2 thou/uL (4.0-11.0)
[2020-07-05 02:26] LABS: APTT 26.8 Seconds (25.0-31.3); INR 0.9; PROTIME 9.5 Seconds (9.20-11.50)
[2020-07-05 02:37] LABS: URINE BILIRUBIN NEGATIVE (Negative); URINE BLOOD NEGATIVE (Negative); URINE CLARITY CLEAR; URINE COLOR YELLOW; URINE GLUCOSE-RANDOM NEGATIVE (Negative); URINE KETONES NEGATIVE (Negative); URINE LEUKOCYTES-REFLEX NEGATIVE (Negative); URINE NITRITE-REFLEX NEGATIVE (Negative); URINE PROTEIN TRACE (Negative); URINE UROBILINOGEN 0.2 E.U./dl (0.2-1.0)
[2020-07-05 02:40] LABS: ACETAMINOPHEN < 2 ug/mL (10-30); SALICYLATE 3.4 mg/dL (2.8-20.0)
[2020-07-05 02:44] LABS: AMP/METHAMP Negative (Negative); BARBITURATES Negative (Negative); BENZODIAZEPINES Negative (Negative); COCAINE Negative (Negative); METHADONE Negative (Negative); OPIATES Negative (Negative); PCP Negative (Negative); THC Negative (Negative)
[2020-07-05 02:47] LABS: CALCIUM 9.1 mg/dL (8.5-10.1); CREATININE 1.4 mg/dL (0.6-1.3); POTASSIUM 3.7 mmol/L (3.5-5.1)
[2020-07-05 03:03] LABS: ALBUMIN 3.4 g/dL (3.4-5.0); TOTAL BILIRUBIN 0.3 mg/dL (<0.1-1.0); TOTAL PROTEIN 7.3 g/dL (6.4-8.2)
[2020-07-05 03:44] VITALS: BP 118/46
[2020-07-05 04:45] VITALS: BP 127/52
[2020-07-05 08:11] VITALS: BP 151/52
[2020-07-05 09:33] LABS: CREATININE 1.2 mg/dL (0.6-1.3); POTASSIUM 4.1 mmol/L (3.5-5.1)
[2020-07-05 09:36] LABS: MAGNESIUM 1.9 mg/dL (1.8-2.4); PHOSPHORUS* 3.4 mg/dL (2.5-4.9)
[2020-07-05 20:00] VITALS: BP 160/97
[2020-07-06] VITALS: BP 137/52
[2020-07-06 05:22] LABS: HEMATOCRIT 37.1 % (42.0-52.0); HEMOGLOBIN 12.5 gm/dL (14.0-18.0); MCH 30.3 pg (26.0-34.0); MCHC 33.8 g/dL (28.0-37.0); MCV 89.6 fL (80.0-100.0); MPV 7.1 fl. (7.2-11.1); RBC 4.14 mil/uL (4.50-6.00); RDW-CV 13.8 % (10.5-14.5); WBC 12.9 thou/uL (4.0-11.0)
[2020-07-06 05:31] LABS: CALCIUM 8.8 mg/dL (8.5-10.1); CREATININE 1.2 mg/dL (0.6-1.3); MAGNESIUM 1.8 mg/dL (1.8-2.4); POTASSIUM 4.5 mmol/L (3.5-5.1)
[2020-07-06 08:00] VITALS: BP 141/71
--- NOTE | 2020-07-06 13:40 | EKG ---
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
[2020-07-06 15:30] VITALS: BP 158/82
[2020-07-07] VITALS: BP 125/78
[2020-07-07 05:11] LABS: CALCIUM 9.5 mg/dL (8.5-10.1); CREATININE 1.1 mg/dL (0.6-1.3); POTASSIUM 4.2 mmol/L (3.5-5.1)
[2020-07-07] MEDS ORDERED: CEFDINIR300 MG PO (08:18)
[2020-07-07] MEDS ORDERED: PROAIR HFA8.5 GM INH (08:18)
[2020-07-07] MEDS ORDERED: AZITHROMYCIN 2250 MG PO (08:18)
[2020-07-07 09:00] VITALS: BP 134/72
[2020-07-07 10:55] VITALS: BP 134/72
== END 2020-07-07 12:29 | disposition home or self-care (01) | DRG 177 ==
LOC: M.ERS 01:27 → M.TBA-ER 02:47 → M.2W 02:47
PROVIDERS: Family Medicine; Internal Medicine; ADMIT Internal Medicine; ATTEND Internal Medicine
DX: J15.6 Pneumonia due to other Gram-negative bacteria (principal); G92 Toxic encephalopathy; E11.22 Type 2 diabetes mellitus with diabetic chronic kidney disease; F32.9 Major depressive disorder, single episode, unspecified; F17.210 Nicotine dependence, cigarettes, uncomplicated; F44.4 Conversion disorder with motor symptom or deficit; I12.9 Hypertensive chronic kidney disease with stage 1 through stage 4 chronic kidney disease, or unspecified chronic kidney disease; N18.30 Chronic kidney disease, stage 3 unspecified; E11.65 Type 2 diabetes mellitus with hyperglycemia; Z20.828 Contact with and (suspected) exposure to other viral communicable diseases; Z90.49 Acquired absence of other specified parts of digestive tract; Z88.8 Allergy status to other drugs, medicaments and biological substances; Z79.82 Long term (current) use of aspirin; Z79.899 Other long term (current) drug therapy

== ENCOUNTER 2020-09-05 12:20 | Emergency (ER) | payer OTHER ==
[~2020-09-05] VITALS: Ht 175.3 cm; Wt 81.7 kg
[~2020-09-05 12:20] MED LIST changes: +AZITHROMYCIN 2250 MG PO; +CEFDINIR300 MG PO; +PROAIR HFA8.5 GM INH
[2020-09-05] MEDS ORDERED: MELOXICAM15 MG PO (12:42)
[2020-09-05] MEDS ORDERED: CARVEDILOL3.125 MG PO (12:42)
[2020-09-05] MEDS ORDERED: FLOMAX0.4 MG PO (12:42)
[2020-09-05] MEDS ORDERED: AMLODIPINE BESY10 MG PO (12:42)
[2020-09-05] MEDS ORDERED: GLIPIZIDE 10 MG10 MG PO (12:42)
[2020-09-05] MEDS ORDERED: POTASSIUM20 PO (12:43)
[2020-09-05 12:58] LABS: URINE BILIRUBIN NEGATIVE (Negative); URINE BLOOD 3+ (Negative); URINE CLARITY SL CLOUDY; URINE COLOR RED; URINE GLUCOSE-RANDOM NEGATIVE (Negative); URINE KETONES TRACE (Negative); URINE LEUKOCYTES-REFLEX 1+ (Negative); URINE NITRITE-REFLEX NEGATIVE (Negative); URINE PROTEIN 3+ (Negative); URINE SPECIFIC GRAVITY 1.025 (1.005-1.030); URINE UROBILINOGEN 0.2 E.U./dl (0.2-1.0)
[2020-09-05 13:03] LABS: CASTS None Seen /LPF (None Seen); CRYSTALS None Seen /LPF (None Seen); MUCUS None Seen strn/LPF (None Seen); SQUAMOUS 4-10 Moderate /LPF (0-3); URINE RBC >20 Many /HPF (0-2); URINE WBC-REFLEX 6-15 Few /HPF (0-5)
[2020-09-05 13:19] LABS: HEMATOCRIT 45.8 % (42.0-52.0); HEMOGLOBIN 15.3 gm/dL (14.0-18.0); MCH 29.1 pg (26.0-34.0); MCHC 33.3 g/dL (28.0-37.0); MCV 87.3 fL (80.0-100.0); MPV 6.8 fl. (7.2-11.1); NUCLEATED RBCS 0 /100WBC; PLATELET COUNT* 357 thou/uL (150-400); RBC 5.24 mil/uL (4.50-6.00); RDW-CV 13.4 % (10.5-14.5); WBC 20.6 thou/uL (4.0-11.0)
[2020-09-05 13:28] LABS: CREATININE 1.2 mg/dL (0.6-1.3); POTASSIUM 4.4 mmol/L (3.5-5.1)
[2020-09-05 13:32] LABS: PROTIME 10.8 Seconds (9.20-11.50)
[2020-09-05 13:36] LABS: ALBUMIN 3.4 g/dL (3.4-5.0); TOTAL BILIRUBIN 0.5 mg/dL (<0.1-1.0); TOTAL PROTEIN 7.6 g/dL (6.4-8.2)
[2020-09-05 13:41] LABS: ABSOLUTE LYMPHOCYTES 1.2 thou/uL (0.8-5.3); ABSOLUTE MONOCYTES 0.4 thou/uL (0.0-1.2); ATYPICAL LYMPHS 2 %; PLATELET ESTIMATE ADEQUATE
[2020-09-05] MEDS ORDERED: CIPRO500 MG PO (15:25)
[2020-09-05 15:37] VITALS: BP 134/90
== END 2020-09-05 15:37 | disposition home or self-care (01) ==
LOC: M.ERS 12:20
PROVIDERS: Nurse Practitioner Family
DX: N39.0 Urinary tract infection, site not specified (principal); D72.829 Elevated white blood cell count, unspecified; J44.9 Chronic obstructive pulmonary disease, unspecified; I13.10 Hypertensive heart and chronic kidney disease without heart failure, with stage 1 through stage 4 chronic kidney disease, or unspecified chronic kidney disease; E11.22 Type 2 diabetes mellitus with diabetic chronic kidney disease; N18.30 Chronic kidney disease, stage 3 unspecified; Z88.8 Allergy status to other drugs, medicaments and biological substances; Z79.4 Long term (current) use of insulin; Z90.49 Acquired absence of other specified parts of digestive tract

== ENCOUNTER 2020-11-12 23:57 | Emergency (ER) | payer OTHER ==
[~2020-11-12] VITALS: Ht 175.3 cm; Wt 87.1 kg
[~2020-11-12 23:57] MED LIST changes: +AMLODIPINE BESY10 MG PO; +CARVEDILOL3.125 MG PO; +CIPRO500 MG PO; +FLOMAX0.4 MG PO; +GLIPIZIDE 10 MG10 MG PO; +MELOXICAM15 MG PO; +POTASSIUM20 PO
[2020-11-13 00:46] LABS: CALCIUM 9.1 mg/dL (8.5-10.1); CREATININE 1.4 mg/dL (0.6-1.3); POTASSIUM 4.3 mmol/L (3.5-5.1)
[2020-11-13 00:47] LABS: ABSOLUTE NEUTROPHILS 3.6 thou/uL (1.6-8.1); BASOPHILS 0.5 %; HEMATOCRIT 44.7 % (42.0-52.0); MCHC 33.5 g/dL (28.0-37.0); NUCLEATED RBCS 0 /100WBC
[2020-11-13 00:51] LABS: ALBUMIN 3.5 g/dL (3.4-5.0); TOTAL BILIRUBIN 0.2 mg/dL (<0.1-1.0); TOTAL PROTEIN 7.3 g/dL (6.4-8.2)
[2020-11-13 00:57] LABS: ABSOLUTE EOSINOPHILS 0.4 thou/uL (0.0-0.7); ABSOLUTE MONOCYTES 0.9 thou/uL (0.0-1.2); EOSINOPHILS 5.4 %; LYMPHOCYTES 28.5 %; MCH 29.3 pg (26.0-34.0); MCV 87.5 fL (80.0-100.0); MONOCYTES 13.6 %; MPV 7.3 fl. (7.2-11.1); PLATELET COUNT* 334 thou/uL (150-400); RBC 5.11 mil/uL (4.50-6.00); RDW-CV 14.6 % (10.5-14.5); WBC 6.9 thou/uL (4.0-11.0)
[2020-11-13 04:39] VITALS: BP 150/67
--- NOTE | 2020-11-13 12:00 | EKG ---
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[place] : 1940 Requested By: Christa James Order Number: [id number] MD: Horace Velazco Measurements Intervals [place] Rate: 91 P: 66 NE: 211 QRS: 73 QRSD: 86 T: 227 QT: 345 QTc: 425 Interpretive Statements Sinus rhythm Borderline prolonged NE interval Borderline repolarization abnormality Compared to ECG 07/05/2020 02:33:14 No significant changes Electronically Signed On 11-13-2020 11:59:58 [employer] by Horace Velazco [email or web address] <ELECTRONICALLY SIGNED> By: Ravi Velazco MD, [facility] 11/13/20 1159 0006 0006 Ravi Velazco MD, [facility] /EPI
== END 2020-11-13 04:40 | disposition home or self-care (01) ==
LOC: M.ERS 23:57
PROVIDERS: Personal Emergency Response Attendant
DX: E11.65 Type 2 diabetes mellitus with hyperglycemia (principal); J44.9 Chronic obstructive pulmonary disease, unspecified; I12.9 Hypertensive chronic kidney disease with stage 1 through stage 4 chronic kidney disease, or unspecified chronic kidney disease; E11.22 Type 2 diabetes mellitus with diabetic chronic kidney disease; N18.30 Chronic kidney disease, stage 3 unspecified; Z88.8 Allergy status to other drugs, medicaments and biological substances; Z79.899 Other long term (current) drug therapy; Z90.49 Acquired absence of other specified parts of digestive tract; Z79.2 Long term (current) use of antibiotics; Z79.4 Long term (current) use of insulin

== ENCOUNTER 2021-05-14 22:42 | Emergency (ER) | payer OTHER ==
[~2021-05-14] VITALS: Ht 175.3 cm; Wt 97.5 kg
[2021-05-14 23:23] LABS: HEMATOCRIT 45.1 % (42.0-52.0); HEMOGLOBIN 15.1 gm/dL (14.0-18.0); MCH 28.9 pg (26.0-34.0); MCHC 33.5 g/dL (28.0-37.0); MCV 86.2 fL (80.0-100.0); MPV 6.5 fl. (7.2-11.1); RBC 5.23 mil/uL (4.50-6.00); RDW-CV 14.3 % (10.5-14.5); WBC 10.8 thou/uL (4.0-11.0)
[2021-05-14 23:35] LABS: CALCIUM 9.1 mg/dL (8.5-10.1); CREATININE 1.2 mg/dL (0.6-1.3); POTASSIUM 4.3 mmol/L (3.5-5.1)
[2021-05-14 23:40] LABS: ALBUMIN 3.4 g/dL (3.4-5.0); TOTAL BILIRUBIN 0.2 mg/dL (<0.1-1.0); TOTAL PROTEIN 7.7 g/dL (6.4-8.2)
[2021-05-15] MEDS ORDERED: IPRAT-ALBUT 0.5-3 ML INH (03:18)
[2021-05-15] MEDS ORDERED: NEBULIZER MISCELL (03:18)
[2021-05-15] MEDS ORDERED: MEDROLDOSEPACK PO (03:18)
[2021-05-15 05:19] VITALS: BP 150/77
--- NOTE | 2021-05-15 12:28 | EKG ---
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1940 Requested By: Christa James Order Number: [id number] MD: Felipe Campos Measurements Intervals [place] Rate: 76 P: 44 IN: 188 QRS: 41 QRSD: 93 T: 55 QT: 371 QTc: 418 Interpretive Statements Sinus rhythm Compared to ECG 11/13/2020 00:06:21 No significant changes Electronically Signed On 05-15-2021 12:28:24 CDT by Felipe Campos [email or web address] <ELECTRONICALLY SIGNED> By: Felipe Campos MD, [facility] 05/15/21 1228 2245 2245 Felipe Campos MD, [facility] /EPI
[2021-05-16] MEDS ORDERED: NEBULIZER MISCELL (19:29)
== END 2021-05-15 05:21 | disposition home or self-care (01) ==
LOC: M.ERS 22:42
PROVIDERS: Personal Emergency Response Attendant
DX: J44.9 Chronic obstructive pulmonary disease, unspecified (principal); Z20.822 Contact with and (suspected) exposure to COVID-19; E11.22 Type 2 diabetes mellitus with diabetic chronic kidney disease; I12.9 Hypertensive chronic kidney disease with stage 1 through stage 4 chronic kidney disease, or unspecified chronic kidney disease; N18.30 Chronic kidney disease, stage 3 unspecified; Z79.2 Long term (current) use of antibiotics; Z79.899 Other long term (current) drug therapy; Z88.8 Allergy status to other drugs, medicaments and biological substances

== ENCOUNTER 2021-05-16 18:46 | Emergency (ER) | payer OTHER ==
[~2021-05-16] VITALS: Ht 175.3 cm; Wt 86.2 kg
[~2021-05-16 18:46] MED LIST changes: +IPRAT-ALBUT 0.5-3 ML INH; +MEDROLDOSEPACK PO; +NEBULIZER MISCELL
[2021-05-16] MEDS ORDERED: NEBULIZER MISCELL (19:29)
[2021-05-16 19:56] VITALS: BP 178/80
== END 2021-05-16 19:57 | disposition home or self-care (01) ==
LOC: M.ERS 18:46
DX: E11.65 Type 2 diabetes mellitus with hyperglycemia (principal); R06.02 Shortness of breath; I10 Essential (primary) hypertension; J44.9 Chronic obstructive pulmonary disease, unspecified; Z79.2 Long term (current) use of antibiotics; Z79.899 Other long term (current) drug therapy; Z88.8 Allergy status to other drugs, medicaments and biological substances

== ENCOUNTER 2021-10-27 16:44 | Emergency (ER) | payer OTHER ==
[~2021-10-27] VITALS: Ht 177.8 cm; Wt 83.9 kg
[2021-10-27 17:41] LABS: URINE BILIRUBIN NEGATIVE (Negative); URINE BLOOD TRACE (Negative); URINE CLARITY CLEAR; URINE COLOR YELLOW; URINE GLUCOSE-RANDOM TRACE (Negative); URINE KETONES NEGATIVE (Negative); URINE LEUKOCYTES-REFLEX NEGATIVE (Negative); URINE NITRITE-REFLEX NEGATIVE (Negative); URINE PROTEIN 2+ (Negative); URINE SPECIFIC GRAVITY 1.015 (1.005-1.030); URINE UROBILINOGEN 0.2 E.U./dl (0.2-1.0)
[2021-10-27 17:48] LABS: SQUAMOUS 0-3 Few /LPF (0-3); URINE RBC 0-2 Rare /HPF (0-2); URINE WBC-REFLEX 0-5 Rare /HPF (0-5)
[2021-10-27 17:49] LABS: BACTERIA-REFLEX 1-9 Few /HPF (None Seen); CASTS None Seen /LPF (None Seen); CRYSTALS None Seen /LPF (None Seen); MUCUS 0-3 Light strn/LPF (None Seen)
[2021-10-27 17:50] LABS: AMP/METHAMP Negative (Negative); BARBITURATES Negative (Negative); BENZODIAZEPINES Negative (Negative); COCAINE Negative (Negative); METHADONE Negative (Negative); OPIATES Negative (Negative); PCP Negative (Negative); THC Negative (Negative)
[2021-10-27 17:58] LABS: ABSOLUTE EOSINOPHILS 0.1 thou/uL (0.0-0.7); ABSOLUTE LYMPHOCYTES 2.5 thou/uL (0.8-5.3); ABSOLUTE MONOCYTES 0.9 thou/uL (0.0-1.2); ABSOLUTE NEUTROPHILS 6.1 thou/uL (1.6-8.1); BASOPHILS 0.4 %; EOSINOPHILS 1.4 %; HEMATOCRIT 45.6 % (42.0-52.0); HEMOGLOBIN 15.2 gm/dL (14.0-18.0); LYMPHOCYTES 25.7 %; MCHC 33.3 g/dL (28.0-37.0); MONOCYTES 9.1 %; MPV 6.4 fl. (7.2-11.1); NUCLEATED RBCS 0 /100WBC; PLATELET COUNT* 443 thou/uL (150-400); POLYS 63.4 %; RBC 5.24 mil/uL (4.50-6.00); RDW-CV 14.7 % (10.5-14.5); WBC 9.7 thou/uL (4.0-11.0)
[2021-10-27 18:06] LABS: CALCIUM 9.4 mg/dL (8.5-10.1); CREATININE 1.1 mg/dL (0.6-1.3); POTASSIUM 4.6 mmol/L (3.5-5.1)
[2021-10-27 18:10] LABS: ALBUMIN 3.7 g/dL (3.4-5.0); TOTAL BILIRUBIN 0.3 mg/dL (<0.1-1.0); TOTAL PROTEIN 8.5 g/dL (6.4-8.2)
[2021-10-27 18:11] LABS: ALCOHOL < 10 mg/dL (<10); SALICYLATE 5.6 mg/dL (2.8-20.0)
[2021-10-27 18:19] LABS: ACETAMINOPHEN < 2 ug/mL (10-30)
[2021-10-27 20:29] VITALS: BP 162/90
== END 2021-10-27 20:32 | disposition home or self-care (01) ==
LOC: M.ERS 16:44
PROVIDERS: Emergency Medicine Emergency Medical Services
DX: R46.89 Other symptoms and signs involving appearance and behavior (principal); Z20.822 Contact with and (suspected) exposure to COVID-19; I12.9 Hypertensive chronic kidney disease with stage 1 through stage 4 chronic kidney disease, or unspecified chronic kidney disease; E11.22 Type 2 diabetes mellitus with diabetic chronic kidney disease; N18.30 Chronic kidney disease, stage 3 unspecified; J44.9 Chronic obstructive pulmonary disease, unspecified; Z90.49 Acquired absence of other specified parts of digestive tract; Z79.899 Other long term (current) drug therapy; Z88.8 Allergy status to other drugs, medicaments and biological substances